=== PATIENT | female | born 1985 ===

== ENCOUNTER 2019-01-09 23:37 | Emergency (ER) | payer MEDICAID ==
[~2019-01-09] VITALS: Ht 160 cm; Wt 103.0 kg
[2019-01-09 23:57] LABS: Eosinophils # (auto) 0.1 uL; Eosinophils % (auto) 1.1 % (0.0-7.0); Monocytes # (auto) 0.3 uL; White Blood Cell 9.8 10^3/uL (4.4-10.8)
[2019-01-09 23:59] LABS: Basophils # (auto) 0 uL; Basophils % (auto) 0.3 % (0.0-2.0); Hematocrit 37.6 % (36.0-46.0); Hemoglobin 12.2 g/dL (12.2-16.2); Lymphocytes # (auto) 2.3 uL; Lymphocytes % (auto) 23.6 % (10.0-50.0); Mean Corpuscular Hgb Conc. 32.4 g/dL (32.0-36.0); Mean Corpuscular Volume 77.1 fL (80.0-100.0); Monocytes % (auto) 3.5 % (0.0-12.0); Neutrophils % (auto) 71.5 % (37.0-80.0); Platelet Count (auto) 187 10^3/uL (140-450); Red Blood Cells 4.87 10^6/uL (4.0-5.20); Red Cell Distribution Width 15.6 % (11.8-14.3)
[2019-01-10 00:01] LABS: Urine Bacteria FEW /hpf (None Seen); Urine Blood Negative /uL (Negative); Urine Mucus FEW (None Seen); Urine Specific Gravity 1.026 (1.001-1.035); Urine WBC 15 /hpf (0 - 5)
[2019-01-10 00:15] LABS: Albumin 3.1 g/dL (3.4-5.0); BUN/Creatinine Ratio 13.5; Calcium 8.4 mg/dL (8.5-10.1); Potassium 3.7 mmol/L (3.5-5.1)
[2019-01-10 00:18] LABS: Bilirubin, Total 0.3 mg/dL (0.2-1.0)
[2019-01-10 03:52] VITALS: BP 113/59
== END 2019-01-10 05:22 | disposition left against medical advice (07) ==
LOC: ER 23:40
DX: O26.892 Other specified pregnancy related conditions, second trimester (principal); R10.30 Lower abdominal pain, unspecified; R00.2 Palpitations; Z3A.24 24 weeks gestation of pregnancy; Z53.21 Procedure and treatment not carried out due to patient leaving prior to being seen by health care provider
CPT/HCPCS: 36415; 76801; 80053; 81001; 84702; 85025; 93005

== ENCOUNTER 2019-06-14 16:55 | Observation (INO) | payer MEDICAID ==
[~2019-06-14] VITALS: Ht 160 cm; Wt 112.5 kg
[2019-06-14] MEDS ORDERED: ACETAMINOPHEN 325 MG TAB PO ONE (17:45)
[2019-06-14] MEDS ORDERED: LACTATED RINGER'S 1,000 ML IV ONE (17:45)
[2019-06-14] MEDS ORDERED: PREN-96 PO (18:06)
== END 2019-06-14 19:05 | disposition home or self-care (01) | DRG 566 ==
LOC: LDRP 16:55
PROVIDERS: ADMIT Specialist; ATTEND Specialist
DX: O26.893 Other specified pregnancy related conditions, third trimester (principal); H53.8 Other visual disturbances; J34.89 Other specified disorders of nose and nasal sinuses; R10.2 Pelvic and perineal pain; O99.89 Other specified diseases and conditions complicating pregnancy, childbirth and the puerperium; R51 Headache; M54.5 Low back pain; Z3A.36 36 weeks gestation of pregnancy
CPT/HCPCS: 59025; G0378; 96361; 96366